=== PATIENT | female | born 1985 | race African-American/Black ===

== ENCOUNTER → 2017-07-04 12:34 | Outpatient (CLI) | payer MEDICAID | END | disposition home or self-care (01) | LOC: D.RT 12:34 | DX: J45.909 Unspecified asthma, uncomplicated (principal); R05 Cough ==

== ENCOUNTER → 2020-01-08 14:09 | Outpatient (CLI) | payer MEDICAID | END | disposition home or self-care (01) | LOC: D.MRI 14:09 | PROVIDERS: ATTEND Nurse Practitioner Family | DX: M79.672 Pain in left foot (principal) ==